=== PATIENT | male | born 1990 | race Two or more races ===

== ENCOUNTER 2018-02-22 20:36 | Emergency (ER) | payer SELFPAY ==
[~2018-02-22] VITALS: Ht 165.1 cm; Wt 63.6 kg
[2018-02-22] MEDS ORDERED: ACETAMINOPHEN 500 MG TABLET PO ONE (21:15)
[2018-02-22] MEDS ORDERED: PredniSONE 20 MG TABLET PO ONE (21:15)
[2018-02-22] MEDS ORDERED: DiphenhydrAMINE HCL 50 MG/ML VIAL IM ONE (21:15)
[2018-02-22 21:43] VITALS: BP 135/88
== END 2018-02-22 21:52 | disposition home or self-care (01) ==
LOC: EMS 20:38
DX: L50.9 Urticaria, unspecified (principal)
CPT/HCPCS: 96372; 99283; J1200; J7512